=== PATIENT | female | born 1970 | race African-American/Black ===

== ENCOUNTER 2020-09-19 08:32 | Outpatient (CLI) | payer BC | END 2020-09-19 08:33 | disposition home or self-care (01) | LOC: CSHCT 08:32 | PROVIDERS: ATTEND Urology | DX: R35.0 Frequency of micturition (principal); R31.29 Other microscopic hematuria; R59.0 Localized enlarged lymph nodes; L73.2 Hidradenitis suppurativa; N28.1 Cyst of kidney, acquired; K57.30 Diverticulosis of large intestine without perforation or abscess without bleeding; N76.89 Other specified inflammation of vagina and vulva | CPT/HCPCS: 74178 ==